=== PATIENT | female | born 1990 | race American Indian/Alaskan Native ===

== ENCOUNTER 2021-07-13 02:47 | Emergency (ER) | payer MEDICAID ==
[2021-07-13] MEDS ORDERED: IBUPROFEN 600 MG TAB PO ONE (03:16)
[2021-07-13] MEDS ORDERED: diazePAM 5 MG TAB PO ONE (03:16)
[2021-07-13 03:52] LABS: Bilirubin,Urine NEG (Negative); Blood,Urine NEG (Negative); Color,Urine Colorless (Yellow); Protein,Urine <15 mg/dL mg/dL (Negative); Urobilinogen,Urine < 2.0 mg/dL (<2.0)
[2021-07-13 03:57] LABS: HCG Qualitative,Urine Negative (Negative); RBC,Urine < 1.0 /HPF (0.0-6.0)
--- NOTE | 2021-07-13 04:12 | Emergency Department Report ---
ED Back Pain/Injury HPI - General Chief Complaint: Abdominal Pain Stated Complaint: BACK PAIN AND GAS Source: patient Limitations: No Limitations - History of Present Illness Initial Comments: Patient is a 30-year-old -Mosoth[place] female with no past medical history presents to the ED with complaint of acute onset persistent low back pain for the last 2 days, and also mild diffuse low abdominal pressure for 2 days. Patient states that she has not had a bowel movement in 3 days and suspects that the pressure in her rectum is causing her low back pain. Patient denies nausea, vomiting, fever, chills, dysuria, urinary frequency and urgency, chest pain or shortness of breath, diarrhea, numbness and tingling or weakness of lower extremities bilaterally. MD Complaint: back pain, other (CONSTIPATION) -: Sudden, hour(s) (12) Similar Symptoms Previously: Yes Place: home Severity: moderate Severity scale (0 -10): 4 Quality: dull, aching Consistency: constant Improves With: none Worsens With: none Associated Symptoms: denies other symptoms. denies: confusion, weakness, chest pain, numbness, cough, difficulty urinating, diaphoresis, fever/chills, constipation, headaches, abdominal pain, loss of appetite, malaise, nausea/vomiting, rash, shortness of breath, syncope Treatments Prior to Arrival: ASA - Related Data Previous Rx's Medication Instructions Recorded Last Taken Type Baclofen 20 mg PO Q12H PRN #24 tablet 07/13/21 Unknown Rx Docusate Sodium [Dok] 100 mg PO Q12H #60 tablet 07/13/21 Unknown Rx Ibuprofen [Motrin] 800 mg PO Q8HR PRN #30 tablet 07/13/21 Unknown Rx Magnesium Citrate 296 ml PO ONCE #1 bottle 07/13/21 Unknown Rx Allergies Allergy/AdvReac Type Severity Reaction Status Date / Time No Known Allergies Allergy Verified 07/13/21 03:23 ED Review of Systems ROS: Stated complaint: BACK PAIN AND GAS Other details as noted in HPI Constitutional: denies: chills, fever Eyes: denies: eye pain, eye discharge, vision change ENT: denies: ear pain, throat pain Respiratory: denies: cough, shortness of breath, wheezing Cardiovascular: denies: chest pain, palpitations Endocrine: no symptoms reported Gastrointestinal: abdominal pain (Suprapubic pressure). denies: nausea, vomiting, diarrhea Genitourinary: denies: urgency, dysuria, discharge Musculoskeletal: back pain (Low back pain). denies: joint swelling, arthralgia Skin: denies: rash, lesions Neurological: denies: headache, weakness, paresthesias Psychiatric: denies: anxiety, depression Hematological/Lymphatic: denies: easy bleeding, easy bruising ED Past Medical Hx - Past Medical History Previous Medical History?: No - Surgical History Past Surgical History?: No - Social History Smoking Status: Never Smoker Substance Use Type: None - Medications Home Medications: Home Medications Medication Instructions Recorded Confirmed Last Taken Type Baclofen 20 mg PO Q12H PRN #24 tablet 07/13/21 Unknown Rx Docusate Sodium [Dok] 100 mg PO Q12H #60 tablet 07/13/21 Unknown Rx Ibuprofen [Motrin] 800 mg PO Q8HR PRN #30 tablet 07/13/21 Unknown Rx Magnesium Citrate 296 ml PO ONCE #1 bottle 07/13/21 Unknown Rx ED Physical Exam - General Limitations: No Limitations General appearance: alert, in no apparent distress - Head Head exam: Present: atraumatic, normocephalic, normal inspection - Eye Eye exam: Present: normal appearance, PERRL, EOMI Pupils: Present: normal accommodation - ENT ENT exam: Present: normal exam, normal orophraynx, mucous membranes moist, TM's normal bilaterally, normal external ear exam - Neck Neck exam: Present: normal inspection, full ROM. Absent: tenderness - Respiratory Respiratory exam: Present: normal lung sounds bilaterally. Absent: respiratory distress, wheezes, rales, rhonchi, chest wall tenderness, accessory muscle use, prolonged expiratory - Cardiovascular Cardiovascular Exam: Present: regular rate, normal rhythm, normal heart sounds. Absent: systolic murmur, diastolic murmur, rubs, gallop - GI/Abdominal GI/Abdominal exam: Present: soft, normal bowel sounds. Absent: tenderness, guarding, rebound, rigid, hyperactive bowel sounds, hypoactive bowel sounds, organomegaly, mass - Extremities Exam Extremities exam: Present: normal inspection, full ROM, normal capillary refill - Back Exam Back exam: Present: normal inspection, full ROM, tenderness (Palpable lumbosacral paraspinal musculoskeletal tenderness). Absent: CVA tenderness (L), muscle spasm, paraspinal tenderness, vertebral tenderness - Neurological Exam Neurological exam: Present: alert, oriented X3, CN II-XII intact, normal gait, reflexes normal - Psychiatric Psychiatric exam: Present: normal affect, normal mood - Skin Skin exam: Present: warm, dry, intact, normal color. Absent: rash ED Course Vital Signs 07/13/21 03:04 Temperature 98.3 F Pulse Rate 94 H Respiratory 16 Rate Blood Pressure 108/74 O2 Sat by Pulse 99 Oximetry ED Medical Decision Making - Radiology Data Radiology results: report reviewed, image reviewed [facility] [address] [place] [address] XRay Report Signed Patient: ROBIN KELLOGG MR#: [id number] : 1990 Acct:[id number] Age/Sex: 30 / F ADM Date: 07/13/21 Loc: ED Attending Dr: Ordering Physician: MELISSA UNGER Date of Service: 07/13/21 Procedure(s): XR abdomen 1V ap Accession Number(s): [id number] cc: MELISSA UNGER Fluoro Time In Minutes: ABDOMEN 1 VIEW INDICATION / CLINICAL INFORMATION: Constipation suspected. COMPARISON: None available. FINDINGS: TUBES / LINES: None. BOWEL GAS PATTERN: No acute abnormality. Moderate colonic stool burden in the right colon. FREE AIR / EXTRALUMINAL GAS: None. ADDITIONAL FINDINGS: No significant additional findings. IMPRESSION: Moderate constipation. No acute abnormality. Signer Name: Elizabet Bartholomew MD Signed: 07/13/2021 5:06 AM Workstation Name: [id number] Transcribed By: JS Dictated By: ELIZABET BARTHOLOMEW MD Electronically Authenticated By: ELIZABET BARTHOLOMEW MD Signed Date/Time: 07/13/21505 DD/ 4 TD/TT: Print Cancel - Medical Decision Making This is a 30-year-old -Mosoth[place] female with no past medical history presents to the ED with complaint of acute onset persistent low back pain for the last 2 days, and also mild diffuse low abdominal pressure for 2 days. Patient states that she has not had a bowel movement in 3 days and suspects that the pressure in her rectum is causing her low back pain. In the ED, patient is alert and oriented x3 and is not in any distress. Patient was treated for pain in the ED. Urinalysis is unremarkable. Abdomen KUB x-ray showed moderate stool and constipation in the colon worse on the right side. Patient was therefore discharged home on medications and advised to follow-up with her primary care physician in 7 to 10 days for reevaluation. Patient was also encouraged to improve on her diet and to incorporate more high-fiber diet and to drink more fluids and water. Patient was advised to return to the ED immediately if symptoms get worse. Patient was otherwise advised to return to the ED immediately if symptoms get worse. - Differential Diagnosis Constipation; muscle strain; muscle spasm; UTI; Critical care attestation.: If time is entered above; I have spent that time in minutes in the direct care o f this critically ill patient, excluding procedure time. ED Disposition Clinical Impression: Spasm of muscle of lower back Constipation Qualifiers: Constipation type: other constipation type Qualified Code(s): K59.09 - Other constipation Disposition: HOME / SELF CARE / HOMELESS Is pt being admited?: No Does the pt Need Aspirin: No Condition: Stable Instructions: Abdominal Pain (ED), Muscle Cramps and Spasms, [id number], Constipation, Adult, [id number] Additional Instructions: The abdomen KUB x-ray showed moderate stool in the colon consistent with constipation. The back pain is likely musculoskeletal. Therefore take medication with food, drink plenty of fluids and follow-up with your primary care physician in 5 to 7 days for reevaluation. Return to the ED immediately if symptoms get worse. Prescriptions: Baclofen 20 mg PO Q12H PRN #24 tablet PRN Reason: Muscle Spasm Docusate Sodium [Dok] 100 mg PO Q12H #60 tablet Magnesium Citrate 296 ml PO ONCE #1 bottle Ibuprofen [Motrin] 800 mg PO Q8HR PRN #30 tablet PRN Reason: Pain , Severe (7-10) Referrals: [facility] [Provider Group] - 7-10 days Forms: Work/School Release Form(ED) Time of Disposition: 05:39 Print Language: JORDANIAN
--- NOTE | 2021-07-13 05:10 | XRay Report ---
ABDOMEN 1 VIEW INDICATION / CLINICAL INFORMATION: Constipation suspected. COMPARISON: None available. FINDINGS: TUBES / LINES: None. BOWEL GAS PATTERN: No acute abnormality. Moderate colonic stool burden in the right colon. FREE AIR / EXTRALUMINAL GAS: None. ADDITIONAL FINDINGS: No significant additional findings. IMPRESSION: Moderate constipation. No acute abnormality. Signer Name: Floyd Larson MD Signed: 07/13/2021 5:06 AM Workstation Name: [id number]
[2021-07-13 06:23] VITALS: BP 109/60
== END 2021-07-13 06:24 | disposition home or self-care (01) ==
LOC: ED 02:47
DX: K59.09 Other constipation (principal); M62.830 Muscle spasm of back
CPT/HCPCS: 74018; 81001; 81025; 99284

== ENCOUNTER 2022-03-20 08:30 | Emergency (ER) | payer SELFPAY ==
[2022-03-20] MEDS ORDERED: dexAMETHasone 4 MG/ML VIAL IM ONE (10:19)
[2022-03-20] MEDS ORDERED: KETOROLAC 10 MG TAB PO ONE (10:19)
[2022-03-20] MEDS ORDERED: diphenhydrAMINE 25 MG CAP PO ONE (10:19)
[2022-03-20] MEDS ORDERED: METOCLOPRAMIDE 10 MG TAB PO ONE (10:19)
[2022-03-20 10:26] LABS: Basophils # (Auto) 0.1 K/mm3 (0.0-0.1); Basophils % (Auto) 0.7 % (0.0-1.8); Eosinophils # (Auto) 0.1 K/mm3 (0.0-0.4); Eosinophils % (Auto) 1.5 % (0.0-4.3); Hematocrit 37.7 % (30.3-42.9); Hemoglobin 12.1 gm/dl (10.1-14.3); Lymphocytes # (Auto) 2.2 K/mm3 (1.2-5.4); Lymphocytes % (Auto) 29.4 % (13.4-35.0); Mean Corpuscular HGB Conc 32 % (30-34); Monocytes # (Auto) 0.5 K/mm3 (0.0-0.8); Monocytes % (Auto) 6.1 % (0.0-7.3); Platelet Count 248 K/mm3 (140-440); Red Blood Count 5.43 M/mm3 (3.65-5.03); Red Cell Distribution Width 17.1 % (13.2-15.2)
[2022-03-20 10:29] LABS: Mean Corpuscular Volume 70 fl (79-97)
[2022-03-20 11:07] LABS: Alanine Aminotransferase 17 units/L (7-56); Albumin 4.1 g/dL (3.9-5); BUN/Creatinine Ratio 14; Blood Urea Nitrogen 7 mg/dL (7-17); Calcium 8.7 mg/dL (8.4-10.2); Hemolysis Index 2
--- NOTE | 2022-03-20 11:26 | Emergency Department Report ---
ED Headache HPI - General Chief Complaint: Nausea/Vomiting/Diarrhea Stated Complaint: HEADACHES/VOMITTING Time Seen by Provider: 03/20/22 10:17 - History of Present Illness Initial Comments: 31-year-old black female with no past medical history presents to the emergency department for evaluation of 2-week history of intermittent headache. She states that she is also has some nausea and vomiting with her headache. She states that she has taken Aleve and has had some minimal improvement from headache but it keeps coming back. She denies vision changes, photophobia, dizziness. States that pain at its worst is 10 out of 10. Timing/Duration: other Quality: moderate (2 weeks) Head Injury Location: frontal Associated Symptoms: nausea/vomiting. denies: confusion, fatigue, facial pain, fever/chills, flushing, loss of consciousness, nasal congestion, nasal drainage, numbness in legs/feet, rash, seizures, sinus infection, stiff neck, vision changes, weakness Allergies/Adverse Reactions: Allergies No Known Allergies Allergy (Verified 07/13/21 03:23) Home Medications: Ambulatory Orders Baclofen 20 mg PO Q12H PRN #24 tablet 07/13/21 Docusate Sodium [Dok] 100 mg PO Q12H #60 tablet 07/13/21 Ibuprofen [Motrin] 800 mg PO Q8HR PRN #30 tablet 07/13/21 Magnesium Citrate 296 ml PO ONCE #1 bottle 07/13/21 Butalb/Acetaminophen/Caffeine [Fioricet 50-300-40 mg CAP] 1 cap PO Q6HR PRN #12 cap 03/20/22 ED Review of Systems ROS: Stated complaint: HEADACHES/VOMITTING Other details as noted in HPI Comment: All other systems reviewed and negative Constitutional: denies: chills, fever, malaise, weakness ENT: denies: congestion Respiratory: denies: cough, shortness of breath Cardiovascular: denies: chest pain, palpitations Gastrointestinal: denies: abdominal pain, nausea, vomiting Musculoskeletal: denies: back pain Neurological: headache. denies: weakness, numbness, paresthesias, abnormal gait Psychiatric: denies: auditory hallucinations ED Past Medical Hx - Past Medical History Previous Medical History?: No - Surgical History Past Surgical History?: No - Social History Smoking Status: Never Smoker Substance Use Type: None - Medications Home Medications: Home Medications Medication Instructions Recorded Confirmed Last Taken Type Baclofen 20 mg PO Q12H PRN #24 tablet 07/13/21 Unknown Rx Docusate Sodium [Dok] 100 mg PO Q12H #60 tablet 07/13/21 Unknown Rx Ibuprofen [Motrin] 800 mg PO Q8HR PRN #30 tablet 07/13/21 Unknown Rx Magnesium Citrate 296 ml PO ONCE #1 bottle 07/13/21 Unknown Rx Butalb/Acetaminophen/Caffeine 1 cap PO Q6HR PRN #12 cap 03/20/22 Unknown Rx [Fioricet 50-300-40 mg CAP] ED Physical Exam - General Limitations: No Limitations General appearance: alert, in no apparent distress - Head Head exam: Present: atraumatic, normocephalic - Eye Eye exam: Present: normal appearance. Absent: scleral icterus, conjunctival injection, periorbital swelling, periorbital tenderness - ENT ENT exam: Present: normal exam, normal orophraynx - Neck Neck exam: Present: normal inspection, full ROM. Absent: tenderness, lymphadenopathy - Respiratory Respiratory exam: Present: normal lung sounds bilaterally. Absent: respiratory distress, wheezes, rales, rhonchi, stridor, chest wall tenderness - Cardiovascular Cardiovascular Exam: Present: regular rate, normal heart sounds - GI/Abdominal GI/Abdominal exam: Present: soft, normal bowel sounds. Absent: distended, tenderness, guarding, rebound, rigid - Extremities Exam Extremities exam: Present: normal inspection, normal capillary refill - Back Exam Back exam: Present: normal inspection. Absent: CVA tenderness (R), CVA tenderness (L), vertebral tenderness - Neurological Exam Neurological exam: Present: alert, oriented X3, CN II-XII intact, normal gait, reflexes normal. Absent: motor sensory deficit - Expanded Neurological Exam Expanded Patient oriented to: Present: person, place, time Speech: Present: fluid speech Cranial nerves: EOM's Intact: Normal, Gag Reflex: Normal, Tongue Deviation: No rmal, Nystagmus: Normal Cerebellar function: Romberg: Normal Sensory exam: Upper Extremity Light Touch: Normal, Upper Extremity Temperature: Normal, Lower Extremity Light Touch: Normal, Lower Extremity Temperature: Normal Motor strength exam: RUE: 5, LUE: 5, RLE: 5, LLE: 5 Best Eye Response (Ray): (4) open spontaneously Best Motor Response (Ray): (6) obeys commands Best Verbal Response (Galt): (5) oriented Ray Total: 15 - Psychiatric Psychiatric exam: Present: normal affect, normal mood - Skin Skin exam: Present: warm, dry, intact, normal color ED Course Vital Signs 03/20/22 03/20/22 08:35 11:35 Temperature 98.5 F 98.4 F Pulse Rate 92 H 75 Respiratory 17 16 Rate Blood Pressure 115/65 119/75 [Left] O2 Sat by Pulse 99 100 Oximetry - Reevaluation(s) Reevaluation #1: 03/20/22 11:24 Headache totally resolved and patient states that she feels much better. ED Medical Decision Making - Lab Data Result diagrams: 03/20/22 09:08 03/20/22 09:08 - Medical Decision Making 31-year-old black female with no past medical history presents to the emergency department for evaluation of 2-week history of intermittent headache. She states that she is also has some nausea and vomiting with her headache. She states that she has taken Aleve and has had some minimal improvement from headache but it keeps coming back. She denies vision changes, photophobia, dizziness. States that pain at its worst is 10 out of 10. Physical exam unremarkable. Labs unremarkable. Headache totally resolved after medication. Patient be discharged home with Fioricet to use as directed. She is advised to follow-up with her primary care provider if worsening symptoms. She is advised to return to the emergency department as needed. She verbalizes understanding of and agreement with plan of care. Critical care attestation.: If time is entered above; I have spent that time in minutes in the direct care of this critically ill patient, excluding procedure time. ED Disposition Clinical Impression: Headache Qualifiers: Headache type: unspecified Headache chronicity pattern: acute headache Intractability: not intractable Qualified Code(s): R51.9 - Headache, unspecified Disposition: 01 HOME / SELF CARE / HOMELESS Is pt being admited?: No Does the pt Need Aspirin: No Condition: Stable Instructions: General Headache Without Cause, [id number] Additional Instructions: Take medications as prescribed. Follow-up with your primary care provider if worsening symptoms. Return to the emergency department as needed. Prescriptions: Butalb/Acetaminophen/Caffeine [Fioricet 50-300-40 mg CAP] 1 cap PO Q6HR PRN #12 cap PRN Reason: Headache Referrals: PRIMARY CARE, [Primary Care Provider] - 3-5 Days Forms: Work/School Release Form(ED) Time of Disposition: 11:25
[2022-03-20 11:43] VITALS: BP 119/75
== END 2022-03-20 11:44 | disposition home or self-care (01) ==
LOC: ED 08:30
DX: R51.9 Headache, unspecified (principal)
CPT/HCPCS: 36415; 80053; 85025; 96372; 99283; J1100